=== PATIENT | female | born 1985 | race Caucasian/White ===

== ENCOUNTER 2024-06-26 15:35 | Outpatient (CLI) | payer MEDICAID | END 2024-06-26 23:59 | disposition home or self-care (01) | LOC: RAD 15:35 | PROVIDERS: ATTEND Family Medicine | DX: R74.01 Elevation of levels of liver transaminase levels (principal) | CPT/HCPCS: 76700 ==

== ENCOUNTER → 2024-09-03 | Emergency (ER) | payer MEDICAID ==
[~2024-09-03] VITALS: Ht 180.3 cm; Wt 118.8 kg
[~2024-09-03] MED LIST: cyclobenzaprine 10mg tablet PO ONE; naproxen 500mg tablet PO ONE
[2024-09-03 17:52] VITALS: BP 132/87; PULSE 86; RESP 15; TEMP 97.9; O2SAT 98
--- NOTE | 2024-09-03 19:01 | Physician Documentation ---
History of Present Illness ~ Chief Complaint: Multiple Medical Complaints Stated Complaint: LT LEG PAIN OK to notify your PCP?: Yes Source: patient Mode of Arrival: POV Exam Limitations: no limitations HPI 39-year-old male presents with left-sided hip, foot and knee pain as well as right shoulder pain and upper back pain after having a 400 lb patient fall. 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 He has not taken any medications for his pain prior to arrival. He is reporting feeling a burning sensation and limited range of motion in his right shoulder as it was arm he use to help guide the patient to the floor. Medication Reconciliation Allergies: Coded Allergies: No Known Allergies (Unverified , 09/03/24) Review of Systems All Other Systems at this time: Reviewed and Negative Physical Exam Vital Signs: RN Vital Signs have been reviewed: Yes, Temperature: 97.9, Source: Temporal, Heart Rate: 86, Respiratory Rate: 15, BP: 132/87, Pulse Oximetry: 98, Weight: 118.850 Pulse Oximetry Reflects: adequate oxygenation Physical Exam General: Alert, no distress. HEENT: No injection, moist mucous membranes. Neck: Full range of motion. Respiratory: No respiratory distress, equal chest rise and fall. Chest: No accessory muscle use. Cardiovascular: Regular rate and rhythm. Gastrointestinal: Nondistended. Extremities: Normal range of motion, no deformity. Neurologic: Oriented x4. Psychiatric: Normal mood and affect. Skin: Normal color, warm and dry. Progress Results/Orders Results/Orders Vital Signs 09/03/24 17:52 Temp 97.9 Pulse 86 Resp 15 B/P (MAP) 132/87 Pulse Ox 98 Departure Referrals: NO PRIMARY CARE PROVIDER (PCP) Additional Comment Medical Screen Exam This patient recieved a medical screening examination. After reviewing the individual's medical complaints with presenting symptoms and performing an appropriate physical examination, it was determined that no immediate life- threatening emergency medical condition is present. This individual is also not a women having contractions. MIRTHA SANTOS [facility] Sep 03, 2024 19:01
--- NOTE | 2024-09-03 20:35 | RADIOLOGY REPORT ---
EXAMINATIONS: 3 views of the left foot CLINICAL HISTORY: FOOT PAIN LEFT COMPARISON: None Findings and impression: No grossly displaced fractures, dislocations or bony destructive changes are evident on the provided views. Small skin defects noted at the lateral aspect of the distal foot. Correlate with physical exam. Mild dorsal calcaneal enthesopathy. If the patient has symptoms clinically suspicious for radiographically occult fracture, follow-up ra diographs could be obtained in 7-10 days time.
== END | disposition left against medical advice (07) ==
LOC: EDSEX 17:46 → ER 17:46
DX: M25.562 Pain in left knee (principal); M25.511 Pain in right shoulder; M25.552 Pain in left hip; M54.6 Pain in thoracic spine
CPT/HCPCS: 73630; 99283